=== PATIENT | male | born 1995 | race Caucasian/White ===

== ENCOUNTER 2018-03-01 20:02 | Emergency (ER) | payer OTHER ==
[2018-03-01] MEDS ORDERED: EPINEPHrine 1 MG/ML INJ IM ONE (20:36)
[2018-03-01] MEDS ORDERED: methylPREDNISolone SOD SUCC 125 MG/2 ML VIAL IVP ONE (20:36)
[2018-03-01] MEDS ORDERED: NS 1,000 ML IV ONE (20:36)
[2018-03-01] MEDS ORDERED: RANITIDINE 50 MG/2 ML VIAL IVP ONE (20:36)
--- NOTE | 2018-03-01 21:09 | EDPHY ---
H & P Stated Complaint: Allergic reaction, neck rash, earaches, "throat feels raspy" Time Seen by Provider: 03/01/18 20:12 HPI/ROS: CHIEF COMPLAINT: "Rashing", allergic reaction HISTORY OF PRESENT ILLNESS: 22-year-old male presents emergency department complaining of itching in his hands and feet, itching in the scalp, and then developing a widespread body rash. Also feels like his throat is scratchy. This started about eczema least 7:00 p.m.. Less than patient anything to eat or drink was 4 o'clock this afternoon. Had a similar episode of an allergic reaction several weeks ago that he thought might be related to raspberries. Otherwise he has no known allergies. He did not eat any unfamiliar food this evening. Patient was otherwise well prior to the event. Denies vomiting, abdominal pain, lightheadedness, dizziness, or difficulty swallowing. REVIEW OF SYSTEMS: A comprehensive 10 system review of systems was reviewed and is otherwise negative aside from elements mentioned in the history of present illness. PAST MEDICAL HISTORY: Seasonal allergies. SOCIAL HISTORY: Nonsmoker. VITAL SIGNS Reviewed by me. GENERAL: Well-developed, well-nourished, resting comfortably, appears in no respiratory distress. HEENT: Atraumatic. Eyes: No icterus, no injection. Mouth: moist mucous membranes. Significant angioedema of the uvula. No erythema or lesions. Neck: supple with no adenopathy. No stridor. LUNGS: Diffuse rhonchi and occasional faint wheezes. CARDIAC: Regular rate and rhythm, no rubs, murmurs or gallops. ABDOMEN: Soft, nontender, nondistended, bowel sounds normal. BACK: No CVA tenderness. EXTREMITIES: No trauma. No edema. Range of motion is normal throughout. NEURO: Alert and oriented, grossly nonfocal. SKIN: Diffuse erythroderma across the upper chest, back. Diffuse erythema of the face. No significant lip swelling or eyelid swelling. Patient has hives in the inner thighs, popliteal fossa, antecubital fossa. PSYCHIATRIC: Normal mentation, no agitation. - Personal History Current Tetanus Diphtheria and Acellular Pertussis (TDAP): Yes - Medical/Surgical History Hx Asthma: No Hx Chronic Respiratory Disease: No Hx Diabetes: No Hx Cardiac Disease: No Hx Renal Disease: No Hx Cirrhosis: No Hx Alcoholism: No Hx HIV/AIDS: No Hx Splenectomy or Spleen Trauma: No Other PMH: Allergies - Social History Smoking Status: Never smoked Constitutional: Initial Vital Signs Temperature (C) 36.5 C 03/01/18 20:05 Heart Rate 71 03/01/18 20:05 Respiratory Rate 18 03/01/18 20:05 Blood Pressure 144/84 H 03/01/18 20:05 O2 Sat (%) 97 03/01/18 20:05 O2 Delivery Mode Room Air Allergies/Adverse Reactions: No Known Allergies Allergy (Unverified 03/01/18 20:07) Home Medications: Medication Instructions Recorded EPINEPHrine [Epipen 0.3 MG] 0.3 mg IM ONCE #2 syr 03/01/18 predniSONE 40 mg PO DAILY #6 tab 03/01/18 Medical Decision Making ED Course/Re-evaluation: 22-year-old male with history of multiple seasonal allergies now presenting with a 2nd episode of generalized allergic reaction with no clear known allergen. On examination the patient has angioedema of the uvula, coarse rhonchi and occasional wheezes. He received epinephrine IM, Solu-Medrol IV, Benadryl IV, ranitidine IV. Reevaluation at 10pm: rash improved. angioedema resolved. lungs clear. Will dc with standard instruction for anaphylaxis. Differential Diagnosis: Differential diagnoses for the patient's symptom complex was considered including but not limited to allergic reaction, urticaria, anaphylaxis, hereditary angioedema, drug-induced reaction. - Data Points Medications Given: Discontinued Medications Diphenhydramine HCl (Benadryl Injection) 50 mg IVP EDNOW ONE Stop: 03/01/18 20:37 Last Admin: 03/01/18 20:41 Dose: 50 mg Epinephrine HCl (Epinephrine) 0.3 mg IM EDNOW ONE Stop: 03/01/18 20:37 Last Admin: 03/01/18 20:41 Dose: 0.3 mg Sodium Chloride (Ns) 1,000 mls @ 0 mls/hr IV ONCE ONE; Wide Open PRN Reason: Protocol Stop: 03/01/18 20:37 Last Admin: 03/01/18 20:43 Dose: 1,000 mls Methylprednisolone Sodium Succinate (Solu-Medrol) 125 mg IVP EDNOW ONE Stop: 03/01/18 20:37 Last Admin: 03/01/18 20:40 Dose: 125 mg Ranitidine HCl (Zantac) 50 mg IVP EDNOW ONE Stop: 03/01/18 20:37 Last Admin: 03/01/18 20:41 Dose: 50 mg Departure - Departure Disposition: Home, Routine, Self-Care Clinical Impression: Urticaria Allergic reaction Qualifiers: Encounter type: initial encounter Qualified Code(s): T78.40XA - Allergy, unspecified, initial encounter Condition: Good Instructions: Urticaria (ED), Anaphylaxis (ED) Additional Instructions: There are 4 medications used to treat allergic reactions. #1. The first is epinephrine. Please use the epinephrine pen in the future as needed if you develops acute swelling, throat tightness, shortness of breath, or severe rash in the setting of allergic reaction. #2. The second type of medication are antihistamines. The most common antihistamine is diphenhydramine (Benadryl). Dose is 25-50 mg every 6-8 hours as needed for itching and rash. Diphenhydramine can be sedating. Another type of antihistamine is loratadine (Claritin). This is taken once a day. It is not sedating. Repeat doses of antihistamines may be needed as the hives will come and go over the next several days. You may notice that the hives are worse after exposure to heat, warm showers, or exertion. #3. The third medication is Pepcid which is another type of an antihistamine. Dose is 20 mg once a day for 3 days. This should be taken on a regular basis. #4. The fourth medication is prednisone, which is a steroid. The dose is 40 mg a day x3 doses. Please take this as instructed. #5. Return to emergency department or seek care urgently if severe shortness of breath develops, swelling of the lips, eyelids, or sensation that the throat is closing. Please follow up with an senior account clerk as previously planned. Referrals: NONE *PRIMARY CARE P,. [Primary Care Provider] - As per Instructions Rosario Mancera [place] [place] - As per Instructions Prescriptions: EPINEPHrine [Epipen 0.3 MG] 0.3 mg IM ONCE #2 syr predniSONE 40 mg PO DAILY #6 tab
[2018-03-01] MEDS ORDERED: EPINEPHrine KIT (USE FOR EPIPEN) 1 MG/ML IM ONE (22:02)
[2018-03-01] MEDS ORDERED: RANITIDINE 50 MG/2 ML VIAL ONE (22:02)
[2018-03-01] MEDS ORDERED: methylPREDNISolone SOD SUCC 125 MG/2 ML VIAL ONE (22:02)
[2018-03-01 22:36] VITALS: BP 134/66
== END 2018-03-01 22:48 | disposition home or self-care (01) ==
DX: T78.40XA Allergy, unspecified, initial encounter (principal); L50.9 Urticaria, unspecified; E86.9 Volume depletion, unspecified
CPT/HCPCS: 96374; J0171; J1200; J2780; J2930